=== PATIENT | male | born 1950 | race Caucasian/White ===

== ENCOUNTER → 2019-01-03 10:20 | Outpatient (CLI) | payer OTHER, SELFPAY ==
[2019-01-03 09:20] VITALS: BMI 30.1
[2019-01-03 13:11] LABS: Microalbumin,Random Urine 8.9 mg/L (NO RANGE EST.); Microalbumin:Creatinine Ratio 15.1 mg/g CRE (<30 mg/g CRE)
[2019-01-03 13:40] LABS: Luteinizing Hormone 12.1 mIU/mL; Prolactin 4.5 ng/mL
[2019-01-06 21:47] LABS: Testosterone, Free 8.93 ng/dL (5.00-21.00)
[2019-01-07 10:19] LABS: Testosterone, % Free 2.29 % (1.50-4.20); Testosterone, Total 390 ng/dL (264-916)
== END ==
PROVIDERS: Referring Provider Internal Medicine Endocrinology, Diabetes & Metabolism; Visit Provider Internal Medicine Endocrinology, Diabetes & Metabolism
DX: N52.9 Male erectile dysfunction, unspecified (principal); E11.9 Type 2 diabetes mellitus without complications
CPT/HCPCS: 36415; 82043; 82570; 83002; 84146; 84402; 84403